=== PATIENT | female | born 1985 | race Caucasian/White ===

== ENCOUNTER → 2017-03-03 | Outpatient (CLI) | payer OTHER ==
[~2017-03-03] MED LIST: IBUP-1050 PO
--- NOTE | 2017-03-03 15:13 | DIAGNOSTIC IMAGING REPORT ---
RIGHT LOWER EXT JOINT WITHOUT CLINICAL HISTORY: 31 years-old Female presenting with KNEE PAIN Right. TECHNIQUE: Multisequence, multiplanar MR imaging of the right knee was performed without the use of intravenous contrast. IV contrast: None. COMPARISON: Correlation made to plain radiographs of the right knee from 02/18/2017. FINDINGS: No evidence of bony edema evidence of at least 50% thickness loss of cartilage in the mid weightbearing portion of the lateral femoral condyle with focal fissuring. Irregularity and mild thinning of the posterior articular surface of the lateral femoral condyle also noted. Additionally, full-thickness cartilage loss at the medial patellar facet with deep fissuring along the median prominence and medial aspect of the lateral patellar facet. Less pronounced degenerative change of the trochlear cartilage. Osteophytosis also evident lateral compartment greater than medial. Evidence of prior anterior cruciate ligament repair, which appears intact. Posterior cruciate ligament intact. Lateral meniscus intact. Irregularity and blunting of the free edge of the medial meniscus at the junction of the posterior horn and body. Evidence of a vertical tear along the posterior horn of the medial meniscus. Meniscocapsular ligaments appear intact. Lateral collateral ligament complex including the tendon of the biceps femoris, fibular collateral ligament, popliteal tendon, and iliotibial band intact. Medial collateral ligament demonstrates increased signal intensity along the deep fibers near its femoral origin, suggesting grade 1 sprain. Extensor mechanism and patellar tendon intact. Normal muscle bulk. No intramuscular edema. Trace knee joint effusion. No popliteal cyst. IMPRESSION: 1. Degenerative change involving the lateral compartment with at least 50% thickness cartilage loss along the mid weightbearing portion with focal fissuring. Full-thickness cartilage loss along the medial patellar facet with deep fissuring along the median prominence and medial aspect of the lateral patellar facet. 2. Postsurgical changes of anterior cruciate ligament repair, which appears intact. 3. Findings concerning for a vertical tear of the posterior horn of the medial meniscus. 4. Grade 1 sprain of the medial collateral ligament. Electronically signed by: Ian Dai M.D. 03/03/2017 3:12 PM Dictated Date/Time: 03/03/2017 3:01 PM
== END | disposition home or self-care (01) ==
LOC: C.MRI 13:41
PROVIDERS: ATTEND Physician Assistant
DX: M25.561 Pain in right knee (principal); T84.89XA Other specified complication of internal orthopedic prosthetic devices, implants and grafts, initial encounter; Y83.1 Surgical operation with implant of artificial internal device as the cause of abnormal reaction of the patient, or of later complication, without mention of misadventure at the time of the procedure; Y79.2 Prosthetic and other implants, materials and accessory orthopedic devices associated with adverse incidents

== ENCOUNTER → 2017-04-08 | Day surgery (SDC) | payer OTHER ==
[2017-04-03 11:46] VITALS: Ht 167.6 cm; Wt 100.0 kg
[~2017-04-08] VITALS: Ht 167.6 cm; Wt 100.0 kg
[~2017-04-08] MED LIST changes: +ATROPINE SULFATE 0.1 MG/ML 5ML SYR IV PRN; +BUPIVACAINE/EPINEPHRINE 0.5% MPF 1:200,000 10 ML VIAL ONE; +CEFAZOLIN 2000 MG/60 ML D5W IV SCH; +DEXAMETHASONE SOD INJ 4 MG/ML VIAL ONE; +EpHEDrine SULFATE INJ 50 MG/ML AMP IV PRN; +FENTANYL CITRATE INJ 50 MCG/1 ML 2 ML VIAL ONE; +FLUMAZENIL 0.1 MG/1 ML 10 ML VIAL IV PRN; +HYDROCODONE/ACETAMOPHEN 5/325MG TAB PO PRN; +HYDROmorphone INJ 1 MG/ML SYR IV PRN; +LACTATED RINGER'S 1000ML 1,000 ML IV SCH; +LIDOCAINE HCL 2% 2 ML VIAL (20MG/ML) ONE; +MIDAZOLAM HCL 1 MG/ML 2ML VIAL ONE; +MoRPHine SULFATE PF 1 MG/ML 10 ML AMP/VIAL ONE; +NALOXONE HCL 0.4 MG/1 ML VIAL/CARP IV PRN; +ONDANSETRON INJ 2 MG/ML 2 ML VIAL IV PRN; +ONDANSETRON INJ 2 MG/ML 2 ML VIAL ONE; +PROMETHAZINE HCL INJ 12.5 MG in SODIUM CHLORIDE 0.9% 50ML 50 ML IV PRN; +PROPOFOL IV EMULSION 10 MG/ML 20 ML VIAL IV ONE; +SODIUM CHLORIDE 0.9% 1000ML 1,000 ML IV SCH
--- NOTE | 2017-04-08 06:40 | History & Physical Bridge Note ---
H&P Re-Evaluation Bridge Note: I have examined the patient, reviewed the History & Physical and in the interval since the performance of the History & Physical I have noted the following changes of clinical significance: No changes noted
--- NOTE | 2017-04-08 06:42 | Discharge Instructions ---
Discharge Instructions Date of Service Apr 08, 2017. Visit Reason for Visit: Right Knee Medial Meniscus Tear, Djd Discharge Discharge Diagnosis / Problem: same Discharge Goals Goal(s): Decrease discomfort, Improve function Medications Stopped Medications Name(s): na Restart Stopped Medication(s): use scripts as directed Activity Recommendations Activity Limitations: as noted below Lifting Limitations: until after follow-up appointment Exercise/Sports Limitations: until after follow-up appointment May Resume Sexual Activity: when tolerated Shower/Bathe: keep incision dry Driving or Machine Use: resume 1 day after discharge Weightbearing Status: Right weightbearing (as tolerated) Anesthesia . Post Anesthesia Instructions: If you have had General Anesthesia or IV Sedation: * Do not drive today. * Resume driving when surgeon permits. * Do not make important decisions or sign legal documents today. * Call surgeon for: 1. Temperature elevations greater than 101 degrees F. 2. Uncontrollable pain. 3. Excessive bleeding. 4. Persistent nausea and vomiting. 5. Medication intolerance (nausea, vomiting or rash). * For nausea and vomiting use only clear liquids such as: tea, soda, bouillon until nausea subsides, then gradually increase diet as tolerated. * If you have any concerns or questions, call your surgeon's office. If physician is unavailable and it is an emergency, call 911 or go to the nearest emergency room. . Instructions / Follow-Up Instructions / Follow-Up The following are instructions to follow after your Arthroscopic Knee Surgery. ACTIVITY RECOMMENDATIONS: * Minimize activity until your first visit after surgery. * No excessive walking, jogging, sports or laboring. * Return to activity is individualized. Most patients are able to return to every day activities within one month. * Return to sports or intensive labor usually occurs at 2-3 months. * Driving is not permitted until at least your first postoperative visit at a minimum. Please ask your doctor when it is safe to resume driving. If you have an automatic vehicle and your left leg has been operated on, then you may begin driving as soon as you are comfortable and can drive safely. SCHOOL/WORK RECOMMENDATIONS: * You may return to sedentary work or school when you are feeling more comfortable. This is usually 3-7 days after surgery. * Expect increased discomfort with increased activity. Continue to elevate and ice the leg as much as possible. MEDICATIONS: * You will have a prescription for pain medication and an anti-inflammatory medication after surgery. * Use the pain medication for severe pain and the anti-inflammatory for less severe pain. Once the pain medication has run out, try to use the anti-inflammatory medication. If this is not effective, contact the office for assistance. * The pain medication may cause nausea, constipation and drowsiness. You should see how they affect you before driving or similar activity. * The anti-inflammatory medication may cause stomach upset and bleeding. If this occurs let your doctor know immediately . * Take a stool softener like Colace or a laxative like Senokot to prevent constipation. DIET: * Resume previous diet. SPECIAL CARE: ICE: You have the option of an ice cooler, gel packs or ice bags. * If you have an ice cooler, refer to the instructions for that device. The ice cooler may be used continuously. * If you do not have an ice cooler, you will need to use ice bags or gel packs. Do not apply ice directly to the skin. Use a thin dressing or marie shirt between the skin and ice bag. Apply ice for 20-30 minutes and repeat every 2-4 hours. This is especially important for the first 7-10 days after surgery. Once the pain improves, use ice as needed. ELEVATION: * Keep your leg elevated at or above the level of your heart as much as possible. * Expect some increased discomfort and swelling if you are standing for any length of time. * When lying down, avoid placing anything under your knee. Rather, prop your leg up by placing several pillows under your heel or calf. DRESSING: * Your dressing will be changed at your first therapy appointment approximately 4-5 days after surgery. Band-aids, tape strips or gauze may be applied. You may then change your dressing daily. * Reapply dressing followed by the Jose Cruz wrap or Tubi-medical supply technician stockinet and EBIce cooling pad (if chosen). * Always wash your hands prior to touching the incision area. * Once the stitches are removed, you may leave the wound open to air or cover with an Jose Cruz wrap or Tubi-medical supply technician stockinet. * If you have been given a white elastic stocking (SHYLA hose), wear as much as possible for the first 1-3 weeks depending on swelling. * Expect some bloody drainage for the first few days after surgery. * Leave the tape strips, if present, in place for 5-7 days. * Band-aids and gauze may be changed daily. CRUTCHES: * You will need to use crutches after surgery. * You may gradually progress to full weight bearing as tolerated and wean off the crutches unless otherwise advised. * Your therapist can provide assistance weaning off crutches. * Patients who have a microfracture done may need to be toe-touch weight- bearing for 4-6 weeks. BATHING: * You may shower or sponge-bathe immediately after surgery. * The dressing will need to be covered with a plastic bag or plastic wrap until the dressing is changed on the fourth or fifth day after surgery. * Once the dressing has been changed on the fourth or fifth day after surgery, you may shower and get the incision wet. * Wash with regular soap and water. * Do not bathe (submerge the incision), soak, swim or use a hot tub until the incision is completely healed over with normal skin and the doctor has given the OK to proceed. * There is no need to apply any ointments, powders or salves to your incision. * Do not apply alcohol or hydrogen peroxide directly to the incision. * Diluted peroxide (50:50 mixture with sterile saline) may be used to clean dried blood from around the incision area. BRACE: * Bracing is generally not needed after routine Arthroscopic Knee surgery. THERAPY: * You will begin therapy four or five days after surgery. * Organized therapy with the therapist is important for the first 4-6 weeks after surgery. During that time you will attend therapy 1-3 times per week. * You will also need to do daily exercises for range of motion and strength as instructed. PROBLEMS/QUESTIONS: * If you have any problems such as severe pain, numbness, tingling or high fevers or if you have any questions, please contact the office at [phone]. * It is not uncommon to have some numbness and tingling after the surgery especially if you have had a nerve block done. This should gradually improve over the first 1- 2 days. If this persists longer or worsens please contact the office. FOLLOW UP VISIT: * If not already scheduled, please call the office at to schedule a follow-up appointment for 10 days, 6 weeks and 3 months after surgery. Diet Recommendations Recommended Home Diet: resume previous diet Procedures Procedures Performed: see op note Pending Studies Studies pending at discharge: no Medical Emergencies . Who to Call and When: Medical Emergencies: If at any time you feel your situation is an emergency, please call 911 immediately. . Non-Emergent Contact Non-Emergency issues call your: Specialist Call Non-Emergent contact if: temperature is above 101.5 . . "Provider Documentation" section prepared by Armando Sanches. .
--- NOTE | 2017-04-08 07:39 | [facility] Post Operative Brief Note ---
Immediate Operative Summary Operative Date Apr 08, 2017. Pre-Operative Diagnosis Right Knee Medial Meniscus Tear, Degenerative Joint Disease Post-Operative Diagnosis same Procedure(s) Performed EUA/arthroscopy/pmmm/chodroplasty [facility] Surgeon Dr. Vicki Sanches Appliance Technician Surgeon(s) Darrell Noyola PA-C Estimated Blood Loss trace Findings see op note Fluids (cc crystalloids) 400cc Specimens none Drains none Anesthesia LMA/IA block Complication(s) None Disposition Recovery Room / PACU
[2017-04-08 08:33] VITALS: TEMP 36.4
--- NOTE | 2017-04-08 08:48 | OPERATIVE REPORT ---
DATE OF OPERATION: 04/08/2017 PREOPERATIVE DIAGNOSIS: Post anterior cruciate ligament reconstructive degenerative changes, right knee with medial meniscus tear. POSTOPERATIVE DIAGNOSIS: Same. OPERATIONS PERFORMED: 1. Exam under anesthesia. 2. Diagnostic arthroscopy. 3. Arthroscopic chondroplasty, lateral femoral condyle. 4. Arthroscopic partial medial meniscectomy and incidental debridement, medial compartment. SURGEON: Armando Sanches MD [employer] DEVELOPER: Darrell Noyola PA-C. No resident or fellow available. PERIOPERATIVE SITUATION: Medically cleared female who is roughly 15 years out from an ACL reconstruction who twisted her knee playing softball and had pain. Exam at that point in time revealed an intact graft with significant joint line tenderness. MRI scan revealed degenerative disease as well as medial meniscus tear. She continues to have catching and wants to proceed with surgical treatment. OPERATION: The patient appropriately identified, site verified, consent verified, 2 g of Ancef confirmed as being given. The right lower extremity was examined revealing an intact graft. There was full flexion and extension. She was then sterilely prepped and draped in usual routine fashion after injecting with 20 mL of 0.5% Marcaine with epinephrine and 5 mg of Duramorph for postoperative pain control. Once the leg was prepped and draped in usual routine fashion, the inframedial portal was then injected with 4 mL of 0.5% Marcaine with epinephrine. The knee scope was then entered. There were some minor adhesions underneath the patella. These were released with the trocar and cannula. Inferomedial portal was then identified arthroscopically, injected with 4 mL of 0.5% Marcaine with epinephrine and the portal made. The knee was then inspected. There was a degenerative change in the medial compartment, grade 3, the chondroplasty of the medial femoral condyle was performed. Trephination of the MCL was then done with an 18-gauge spinal needle to open up the medial joint, which revealed the crabmeat degenerative tear with unstable small bucket, which was resected to a stable balanced contoured rim, leaving her with enlargement of her previous meniscal injury and debridement with virtually a subtotal medial meniscectomy. The medial compartment was then all cleaned out and no other additional pathology found. There was some minor overgrowth of the notch, which was debrided with the shaver. The ACL graft was intact. It had good tension and good Deb test was normal. The lateral compartment was then inspected. There was nothing wrong with the lateral meniscus; however, there was significant articular disease with large articular flap of the central zone of the lateral femoral condyle consistent with contusion lateral femoral condyle with an ACL injury. This was debrided to a stable base. It was elected not to do a microfracture based on changes about the medial compartment as well as the lateral compartment and the subtotal meniscectomy on the medial side. The patellofemoral joint was then debrided of any synovial impingement. There was no major articular disease noted there. The procedure was then terminated. All instruments and fluid removed. Portals closed with 3-0 nylon, dressed with Xeroform, 4 x 4 gauze, sterile Webril, ABD pads, above-knee SHYLA stocking. ESTIMATED BLOOD LOSS: Trace. FLUIDS: Crystalloid was 400 mL. Overall prognosis for this knee is very guarded based on the patient's age, level of degenerative disease, and the patient morphology. DVT prophylaxis per protocol. I attest to the content of the Intraoperative Record and any orders documented therein. Any exceptions are noted below. MTDD
[2017-04-08 08:59] VITALS: BP 139/86; PULSE 64; O2SAT 100
--- NOTE | 2017-04-08 09:04 | Anesthesia Progress Nt - [facility] ---
Anesthesia Post Op Note Date & Time Apr 08, 2017 at 09:04 Vital Signs Pain Intensity: 2 Vital Signs Past 12 Hours Date Time Temp Pulse Resp B/P (MAP) Pulse Ox O2 Delivery O2 Flow Rate FiO2 04/08/17 08:59 64 16 139/86 (103) 100 Room Air 04/08/17 08:33 36.4 67 16 123/88 (100) 100 Room Air 04/08/17 08:26 36.6 121/95 04/08/17 08:23 66 14 04/08/17 08:23 66 14 100 04/08/17 08:21 125/87 04/08/17 08:18 64 11 04/08/17 08:18 64 11 100 04/08/17 08:16 117/92 04/08/17 08:13 66 16 04/08/17 08:13 67 16 100 04/08/17 08:11 134/96 04/08/17 08:08 66 9 100 04/08/17 08:08 65 9 04/08/17 08:06 137/95 04/08/17 08:03 69 15 04/08/17 08:03 68 15 100 04/08/17 08:01 129/93 04/08/17 07:58 71 15 100 04/08/17 07:58 70 15 04/08/17 07:56 135/96 04/08/17 07:53 83 13 04/08/17 07:53 80 13 98 04/08/17 07:51 126/92 04/08/17 07:49 36.5 75 16 126/92 97 Mask 6 04/08/17 06:24 36.5 81 16 136/92 (107) 97 Room Air Notes Mental Status: alert / awake / arousable, participated in evaluation Pt Amnestic to Procedure: Yes Nausea / Vomiting: adequately controlled Pain: adequately controlled Airway Patency, RR, SpO2: stable & adequate BP & HR: stable & adequate Hydration State: stable & adequate Anesthetic Complications: no major complications apparent
--- NOTE | 2017-04-08 10:52 | [facility] Operative Report ---
Operative Report Operative Date Apr 08, 2017. Pre-Operative Diagnosis Right Knee Medial Meniscus Tear, Degenerative Joint Disease Post-Operative Diagnosis Right knee same Procedure(s) Performed Right knee EUA/arthroscopy/pmm/chodroplasty [facility] Surgeon Dr. Vicki Sanches Network Solutions Architect Surgeon(s) Darrell Noyola PA-C Estimated Blood Loss trace Findings Right knee DJD with medial meniscal tear Fluids (cc crystalloids) 400cc Specimens none Drains none Complication(s) None Disposition Recovery Room / PACU Indications This 31-year-old white female presented to the office with complaints of right knee pain. She had tried conservative care measures without success. There was no numbness or tingling. Preoperative imaging was obtained. She elected to proceed with surgical intervention in hopes of alleviating her discomfort. Description of Procedure Patient was taken to the operating room where she was given general anesthesia. She was prepped and draped in usual sterile fashion. Please see Dr. Sanches's operative report for specifics of the procedure. I was present for the entire case from initial patient positioning through final wound closure. Assistance was provided in patient positioning, arthroscopy, and final wound closure. Patient was taken to the recovery room in satisfactory condition. I attest to the content of the Intraoperative Record and any orders documented therein. Any exceptions are noted below.
== END | disposition home or self-care (01) ==
LOC: X.SURG 06:14
PROVIDERS: ATTEND Physical Medicine & Rehabilitation Sports Medicine
DX: M23.231 Derangement of other medial meniscus due to old tear or injury, right knee (principal); M23.51 Chronic instability of knee, right knee; E66.9 Obesity, unspecified